=== PATIENT | male | born 1980 | race Caucasian/White ===

== ENCOUNTER 2018-07-16 16:22 | Observation (INO) ==
[2018-07-16] MEDS ORDERED: ASPIRIN PO ONE (16:36)
--- NOTE | 2018-07-16 16:45 | EKG Report ---
Test Performed on : 07/16/2018 4:38:58 PM Test Reason : numbness tightness Blood Pressure : / mmHG Vent. Rate : 074 BPM Atrial Rate : 074 BPM P-R Int : 148 ms QRS Dur : 102 ms QT Int : 384 ms P-R-T Axes : 073 003 061 degrees QTc Int : 426 ms Normal sinus rhythm. with sinus arrhythmia. Normal ECG No previous ECGs available Unconfirmed Result
[2018-07-16 17:07] LABS: BASO# 0.03 X1000 (0.0-0.2); BASO% 0.3 % (0.0-0.8); EOS# 0.11 X1000 (0.0-0.7); EOS% 1.2 % (0.0-10.0); HEMATOCRIT 42.4 % (42.0-52.0); HEMOGLOBIN 15.4 g/dL (14.0-18.0); IMM GRAN# 0.01 X1000 (0.0-0.04); IMM GRAN% 0.1 % (0.0-0.5); LYMPH# 1.93 X1000 (1.2-3.4); LYMPH% 21.6 % (20.5-51.1); MCH 30.7 PG (27-31); MCHC 36.3 g/dL (33-37); MCV 84.5 FL (81-99); MONO# 0.95 X1000 (0.11-0.59); MONO% 10.6 % (1.7-9.3); MPV 10.9 FL (7.4-10.4); NEUT# 5.92 X1000 (1.4-6.5); NEUT% 66.2 % (42.2-75.2); PLT 254 X1000 (130-400); RBC 5.02 XMIL (4.7-6.1); RDW 12.5 % (11.5-14.5); WBC 8.95 X1000 (4.8-10.8)
[2018-07-16 17:26] LABS: AGAP 13; ALBUMIN 4.8 g/dL (3.5-5.0); ALKALINE PHOSPHATASE 73 U/L (32-122); BUN 17 mg/dL (8-22); CALCIUM 9.9 mg/dL (8.8-10.2); CHLORIDE 99 mmol/L (98-107); COSMO 281; CREATININE 0.9 mg/dL (0.7-1.2); ESTIMATED GFR > 60; GLUCOSE 91 mg/dL (70-104); GOT 23 U/L (10-34); GPT 30 U/L (10-44); INR 0.91; POTASSIUM 3.8 mmol/L (3.5-5.1); PROTIME 12.7 Seconds (11.0-16.0); PTT 30.9 Seconds (22.3-41.8); SODIUM 140 mmol/L (136-145); TCO2 28 mmol/L (25-35); TOTAL PROTEIN 7.6 g/dL (6.3-8.3)
[2018-07-16 17:29] LABS: D-DIMER < 0.27 ug/mLFEU (0.0-0.52)
--- NOTE | 2018-07-16 17:49 | Diag Imaging Result Doc PS360 ---
CT HEAD W/O CONTRAST - 07/16/2018 INDICATION: right side weakness COMPARISON: None FINDINGS: The ventricles and sulci are normal in size and contour. No intracranial mass or hemorrhage. The skull is intact. The sinuses mastoids and middle ears are clear. IMPRESSION: Negative exam. This exam was performed using automated exposure control, adjustment of mA or kV according to patient size, and/or use of iterative reconstruction technique Electronically signed by Wiliam Uribe 07/16/2018 5:47 PM
[2018-07-16] MEDS ORDERED: LOVENOX SUBQ ONE (18:17)
--- NOTE | 2018-07-16 19:08 | Diag Imaging Result Doc PS360 ---
CHEST-2 VIEWS - 07/16/2018 INDICATION: chest tightness COMPARISON: 08/12/2016 FINDINGS: The lungs are normally expanded and clear. Heart size and mediastinal contours are normal. No pneumothorax or pleural effusion. IMPRESSION: Negative exam. Electronically signed by Wiliam Uribe 07/16/2018 7:06 PM
[2018-07-16 19:34] LABS: BILIRUBIN URINE NEGATIVE (NEGATIVE); BLOOD URINE NEGATIVE (NEGATIVE); CLARITY CLEAR (CLEAR); COLOR YELLOW; GLUCOSE URINE NEGATIVE (NEGATIVE); KETONE URINE NEGATIVE (NEGATIVE); LEUKOCYTES URINE NEGATIVE (NEGATIVE); NITRITE URINE NEGATIVE (NEGATIVE); PROTEIN URINE NEGATIVE (NEGATIVE); SP GRAVITY URINE 1.005; UROBILINOGEN URINE NORMAL
[2018-07-16 19:37] LABS: URINE SOURCE CLEAN CATCH
[2018-07-16 19:39] LABS: URINE BACTERIA NEGATIVE /HFP; URINE CAST NONE SEEN /LPF; URINE CRYSTAL NONE SEEN /HPF; URINE EPITHELIAL CELLS <10 /HPF (<10); URINE RBC <10 /HPF (<10); URINE WBC <10 /HPF (<10); URINE YEAST NONE SEEN /HPF
[2018-07-16 19:49] LABS: UR AMPHETAMINES QUAL NONE DETECTED (NONE DETECT); UR BARBITUATES QUAL NONE DETECTED (NONE DETECT); UR BENZODIAZEPIN QUAL NONE DETECTED (NONE DETECT); UR CANNABINOIDS QUAL NONE DETECTED (NONE DETECT); UR COCAINE QUAL NONE DETECTED (NONE DETECT); UR METHADONE QUAL NONE DETECTED (NONE DETECT); UR METHAMPHETAMINE QUAL NONE DETECTED (NONE DETECT); UR OPIATES QUAL NONE DETECTED (NONE DETECT); UR OXYCODONE QUAL NONE DETECTED (NONE DETECT); UR PCP QUAL NONE DETECTED (NONE DETECT); UR PROPOXYPHENE QUAL NONE DETECTED (NONE DETECT); UR TCA QUAL NONE DETECTED (NONE DETECT)
[2018-07-16] MEDS ORDERED: NS 500 ML IV ONE (20:03)
[2018-07-16 20:57] LABS: UR AMPHETAMINES QUAL NONE DETECTED (NONE DETECT); UR BARBITUATES QUAL NONE DETECTED (NONE DETECT); UR BENZODIAZEPIN QUAL NONE DETECTED (NONE DETECT); UR CANNABINOIDS QUAL NONE DETECTED (NONE DETECT); UR COCAINE QUAL NONE DETECTED (NONE DETECT); UR METHADONE QUAL NONE DETECTED (NONE DETECT); UR METHAMPHETAMINE QUAL NONE DETECTED (NONE DETECT); UR OPIATES QUAL NONE DETECTED (NONE DETECT); UR OXYCODONE QUAL NONE DETECTED (NONE DETECT); UR PCP QUAL NONE DETECTED (NONE DETECT); UR PROPOXYPHENE QUAL NONE DETECTED (NONE DETECT); UR TCA QUAL NONE DETECTED (NONE DETECT)
[2018-07-16] MEDS: NS 1,000 ML IV SCH (23:10)
[2018-07-17] MEDS: NS 1,000 ML IV SCH (11:32)
[2018-07-17] MEDS ORDERED: TYLENOL PO PRN (11:43)
--- NOTE | 2018-07-17 15:39 | HISTORY AND PHYSICAL ---
CHIEF COMPLAINT: Right-sided numbness and chest tightness. HISTORY OF PRESENT ILLNESS: This is a 37-year-old gentleman who presented to the emergency room complaining of a sudden onset of chest tightness followed by right-sided numbness. He states that this was in the right side of his face, his right arm, in the outside of his right lower extremity. He had denied any change in vision. He was able to perform his activities. He denied any slurred speech and he said those around him did not seen any difference in his actions. He did state he had an episode about 2 to 3 days ago while sitting at his desk at work, said it lasted maybe 30 minutes at that time and resolved. He denied any syncope, dizziness, chest pain or palpitations. The patient stated that his chest tightness resolved within 5 minutes after receiving Lovenox subcu and it has not recurred. PAST MEDICAL HISTORY: Denies. PAST SURGICAL HISTORY: Tonsillectomy. SOCIAL HISTORY: He denies any alcohol, tobacco or illicit drug use. He lives with his . ALLERGIES: Skelaxin which causes hives. HOME MEDICATIONS: Omeprazole 40 mg p.o. daily. REVIEW OF SYSTEMS: Discussed with the patient with pertinent positives stated in the HPI. He denied any syncope, dizziness, any shortness of breath, palpitations, cough, any fevers or chills, any night sweats, recent weight loss or weight gain, any nausea, vomiting, diarrhea, constipation, black or bloody vomitus or stools, any hematuria, dysuria, frequency, urgency. PHYSICAL EXAMINATION: GENERAL: This is a 37-year-old gentleman who is sitting up in the bed in no distress. VITAL SIGNS: Blood pressure is 110/79 with a heart rate of 60, respirations are 16, temperature is 96.7 degrees oral with room air saturations 96 to 99%. HEENT: Pupils are equal, round, react to light. EOMs are intact sclerae anicteric. Head is normocephalic, atraumatic. Mucous membranes are moist. NECK: Supple with trachea midline. CARDIOVASCULAR: Regular rate and rhythm. S1 and S2 appreciated. Calves are nontender with peripheral pulses palpable x4 extremities. PULMONARY: Breath sounds are clear with no increased work of breathing noted. GASTROINTESTINAL: Abdomen is soft, nontender, nondistended with bowel sounds in all 4 quadrants. SKIN: Warm and dry. NEUROLOGIC: Pupils equal, round, react to light, EOMs are intact, forehead is spared. He has equal nasal flaring. No tongue or uvula deviation. Equal shoulder shrug. He has no plantar drift. He has 5/5 muscle strength to bilateral upper and lower extremities. Combiner Operator are equal. [id number]-ti-[id number] is 3/3 bilateral. He denies any difference in sensation with stimulation to bilateral legs or arms or bilateral side cheeks. LABS: WBC is 8.9 with hemoglobin 15.4, hematocrit 42.4, platelets of 254,000. Sodium is 140, potassium 3.8, BUN is 17, creatinine 0.9 with a glucose of 91. Troponin is negative. Urinalysis is essentially negative. Urine drug screen reveals none detected . CT of the head reveals negative exam. Ventricles and sulci are normal in size and contour. No intracranial mass or hemorrhage. Skull is intact, sinuses, mastoids and middle ears are clear. Chest x-ray revealed negative exam, lungs are normally expanded and clear. Heart size and mediastinal contours are normal. No pneumothorax or pleural effusion. EKG reveals sinus rhythm with a sinus arrhythmia at a rate of 74. ASSESSMENT AND PLAN: 1. Right-sided paresthesias resolved. 2. Chest tightness resolved. PLAN: The patient has been admitted to the medical-surgical floor. He was placed on telemetry which will continue, neuro checks every 4 hours. Will obtain an echocardiogram as well as a carotid ultrasound. Will continue omeprazole. Further treatments pending hospital course. Dictated by ZACK Tom for Berhane Turner MD This chart was documented by, ZACK Tom and accurately reflects the services performed, treatment plan and medical decisions as attested by the providers signature Berhane Turner MD. cc: ZACK Tom MD
[2018-07-17 16:03] VITALS: BP 114/77
--- NOTE | 2018-07-17 16:44 | ECHO REPORT ---
ORDER DATE: 07/17/2018 2D echocardiogram. ECHOCARDIOGRAPHIC MEASUREMENTS: 1. Interventricular septum 1.1, left ventricular posterior wall 1.0, diastolic diameter 4.7, left atrium 3.4, aorta 3.2, left ventricular systolic diameter 2.7. 2. Aortic valve leaflets were trileaflet. Pulmonic valve was normal. Tricuspid valve was normal. Mitral valve was normal. 3. There is mild tricuspid regurgitation. Peak velocity across the tricuspid valve was 2.5 m/sec. There is no aortic stenosis or regurgitation. There is trace mitral regurgitation . 4. Peak velocity across the aortic valve less than 2 m/sec. By Doppler studies there is no aortic stenosis or regurgitation. 5. Normal left ventricular cavity size. Estimated ejection fraction of 65%. 6. There is no pericardial effusion or obvious intracardiac mass or thrombus seen. cc: MD Mayela Moya CRNP
--- NOTE | 2018-07-17 19:04 | Extremity Venous Study ---
Carotid Ultrasound - 07/17/2018 INDICATION: right sided paresthesia, chest pressure TECHNIQUE: COMPARISON: None FINDINGS: The carotid arteries are patent. There is no stenosis or aneurysm. No elevated velocities. Maximum velocity on the right side is 73 cm/s. Maximum velocity on the left side is 94 cm/s. The vertebral arteries are patent with forward flow. IMPRESSION: Negative exam. Electronically signed by Wiliam Uribe 07/17/2018 7:02 PM
--- NOTE | 2018-07-17 19:39 | HISTORY AND PHYSICAL ---
ADDENDUM: Patient seen and examined by myself, full note dictated and discussed with nurse practitioner. Patient has a myriad of symptoms to include right arm, cheek and right leg tingling. This seems to have resolved. He also notes that he had chest pain midsternal hurt with respiration but also hurt with ambulation. Thankfully this has improved. Will admit patient the hospital, rule out IA, check an echocardiogram and carotid and follow. cc: Berhane Turner MD
--- NOTE | 2018-07-17 20:34 | DISCHARGE SUMMARY ---
ADMISSION DATE: 07/16/2018 DISCHARGE DATE: 07/17/2018 DIAGNOSIS: Right-sided numbness, chest tightness, resolved. DIAGNOSTICS: 1. Chest x-ray revealed lungs are normally expanded and clear. Heart size and mediastinal contours are normal. No pneumothorax or pleural effusion. Negative exam. 2. CT of the head without contrast revealed a negative exam. Ventricles and sulci are normal in size and contour. No intracranial mass or hemorrhage. The skull is intact. Sinuses and mastoids and middle ears are clear. 3. Echocardiogram revealed normal left ventricular cavity size with ejection fraction of 65%. No pericardial effusion or obvious intracardiac mass or thrombus seen. 4. Carotid Doppler is pending. HOSPITAL COURSE: Mr. Geller presented to the emergency room after having an episode of chest tightness followed by right-sided numbness that he describes as the right side of his face, his right arm, and right leg on the outer aspect of his leg down to his foot. He denied any decrease in movement. His gait was unchanged. His speech was unchanged. He stated that his coworkers did not see any difference in him. On arrival to the emergency room, vital signs were in the 150s over 80s initially, and they were 110's to 120s over 70s. His EKG revealed sinus rhythm with sinus arrhythmia at a rate of 74. Echocardiogram and CT as stated above. As his symptoms have resolved, the patient thankfully is ready for discharge. PHYSICAL EXAMINATION ON DISCHARGE: Vital Signs: Blood pressure is 118/80 with a heart rate of 66, respirations 18, temperature is 98 degrees with room air saturations 96% to 99%. Cardiovascular: Regular rate and rhythm. S1, S2 appreciated. Pulmonary: Breath sounds are clear with no increased work of breathing noted. Chest rises and falls symmetrically with respiration. Gastrointestinal: Abdomen is soft, nontender, nondistended. Bowel sounds in all 4 quadrants. Neurologic: Pupils equal, round, and react to light. EOMs are intact. Forehead is spared. Equal nasal flaring. No tongue or uvula deviation. Equal shoulder shrug. He has no plantar drift. Kzflay-gc-nmwv is 3/3 bilateral. His muscle strength is 5/5 x4 extremities. His gait is steady. Speech is clear. The patient did eat while here and had no difficulty chewing or swallowing. DISCHARGE MEDICATIONS: Omeprazole 40 mg p.o. daily FOLLOW-UP: He has been instructed to follow up with his primary care in the next 1 to 2 weeks or sooner if needed. He was instructed to return to the emergency room for any chest pain, palpitations, syncope, dizziness, recurring decreased sensation, or for any questions or concerns that he may have. He is being discharged home in stable condition with family members. TIME SPENT: This is a greater than 30-minute discharge. Dictated by ZACK Tom for Berhane Turner MD This chart was documented by, ZACK Tom and accurately reflects the services performed, treatment plan and medical decisions as attested by the providers signature Berhane Turner MD. cc: ZACK Tom MD
--- NOTE | 2018-07-17 20:42 | DISCHARGE SUMMARY ---
ADMISSION DATE: 07/16/2018 DISCHARGE DATE: 07/17/2018 DISCHARGE DIAGNOSES: 1. Chest pain, resolved. 2. Paresthesias, resolved. 3. Chronic anxiety. 4. Family history of coronary artery disease. CONSULTATIONS: None. PROCEDURES: Echo and carotid both reported as negative. BRIEF HOSPITAL COURSE: Patient was admitted to the hospital as noted in HPI and ruled out for an RI. His symptoms improved. Carotid and echo both were reported as negative. As his symptoms were resolved, he will be discharged home. DISPOSITION: Patient will be discharged home. He needs to follow up outpatient with his primary care as he may still require an MRI and certainly should consider a stress test although highly likely that both of these will be negative given his atypical symptoms. We will discharge him home. cc: Berhane Turner MD
[2018-07-18] MEDS ORDERED: PRILOSEC PO SCH (07:00)
== END 2018-07-17 18:49 | disposition home or self-care (01) ==
LOC: P.ED 16:22 → P.MEDSURG 20:03 → INTOOBSV 20:03
PROVIDERS: ATTEND Family Medicine
CPT/HCPCS: 70450; 71020; 71046; 80053; 80104; 80301; 80305; 81001; 82550; 84484; 85025; 85379; 85610; 85730; 93005; 93306; 93880; 94761; 96372; 99285; A9270; G0431; G0434; G0477; J1650; J7030